=== PATIENT | male | born 1990 | race Caucasian/White ===

== ENCOUNTER 2017-06-05 21:59 | Emergency (ER) | payer SELFPAY ==
[2017-06-05 22:17] VITALS: BMI 26.4
[2017-06-05 22:39] LABS: BASOPHILS # (AUTO) 0.1 X10^3/uL (0.0-0.1); BASOPHILS % (AUTO) 1.1 % (0.2-1.0); EOSINOPHILS # (AUTO) 0.2 x10^3/uL (0.0-0.2); HEMATOCRIT 47.8 % (42.0-54.0); HEMOGLOBIN 16.6 g/dL (13.5-18.0); LYMPHOCYTES # (AUTO) 3.2 X10^3/uL (1.3-2.9); LYMPHOCYTES % (AUTO) 31.2 % (21.0-51.0); MEAN CORPUSCULAR HEMOGLOBIN 30.6 pg (27.0-34.0); MEAN CORPUSCULAR HGB CONC 34.7 g/dL (33.0-35.0); MEAN CORPUSCULAR VOLUME 88.3 fL (80.0-100.0); MEAN PLATELET VOLUME 7.6 fL (7.4-11.0); MONOCYTES # (AUTO) 0.9 x10^3/uL (0.3-0.8); MONOCYTES % (AUTO) 9.1 % (0.0-13.0); NEUTROPHILS # (AUTO) 5.8 x10^3/uL (2.2-4.8); NEUTROPHILS % (AUTO) 56.6 % (42.0-75.0); PLATELET COUNT 190 X10^3/uL (150.0-450.0); RED BLOOD COUNT 5.41 X10^6/uL (4.7-6.0); RED CELL DISTRIBUTION WIDTH 13.5 % (11.6-16.5); WHITE BLOOD COUNT 10.2 X10^3/uL (3.6-10.0)
--- NOTE | 2017-06-05 22:56 | RAD ---
HISTORY: Hypertension Study: Single view of the chest. Comparison: None. Findings: The cardiomediastinal silhouette is normal. No focal consolidations, pleural effusions or pneumothora x. Osseous structures demonstrate no acute abnormality. IMPRESSION: 1. No acute cardiopulmonary process. Reported By:
[2017-06-05 22:57] LABS: BLOOD UREA NITROGEN 9 mg/dL (7-18); CARBON DIOXIDE 26.8 mmol/L (21-32); CHLORIDE 104 mmol/L (98-107); CREATININE 0.98 mg/dL (0.70-1.30); SODIUM 141 mmol/L (136-145); TROPONIN I < 0.02 ng/mL (0-1.5); eGFR BLACK RACES > 60 (>60); eGFR NON BLACK RACES > 60 (>60)
[2017-06-05 23:00] LABS: ALANINE AMINOTRANSFERASE 36 Units/L (12-78); ALBUMIN 3.9 g/dL (3.4-5.0); ALKALINE PHOSPHATASE 89 Units/L (46-116); ASPARTATE AMINO TRANSFERASE 18 Units/L (15-37); CKMB % 1.7 % (<4); CREATINE KINASE 59 Units/L (39-308); CREATINE KINASE MB < 1.0 ng/mL (0-4.0); MAGNESIUM 1.9 mg/dL (1.7-2.9); TOTAL PROTEIN 7.3 g/dL (6.4-8.2)
--- NOTE | 2017-06-05 23:01 | DR.GENAD ---
HPI - PCP Primary Care Physician: NFD - Complaint/Symptoms Chief Complaint Doctors Comments: Patient is complaining of xiphoid chest pain for the past three days getting worst today with elevated blood pressure. States he does not usually have elevated blood pressure and he is not on any medicine for his blood pressure. He denies SOB,nausea, cold, cough, fever, or chills or any recent trauma. States the pain is 8 of 10 and is not affected by movement. He smokes one pack cigarettes daily and has a strong family history of heart disease. states ehevgeny does not have a local doctor. He is not having any problems with his food digesting. Chief Complaint:: HIGH BLOOD PRESSURE, HURTING IN LEFT ARM AND PRESSURE IN CHEST. Self Treatment fo Chief Complaint: CHECKED B/P FIRST TIME TODAY - Nurses notes reviewed Nurses Notes Review: Yes - Source History Provided: Patient - Mode of Arrival Mode of Arrival: Ambulatory - Timing Onset of Chief Complaint: 06/02/17 Came on: Gradually - Duration Duration: Constant How lon Duration: Days - Location Location: xiphoid chest pain - Severity Severity: Moderate - Modifying Factors Worsens:: nothing Improves:: nothing PMH - PMH Past Medical History: No Past Surgical History: No Surgical History: No History - Family History History of Family Medical Conditions: Yes Family Medical History: Diabetes Mellitus, Cancer, [place], Heart Failure, Sudden Cardiac , Hypertension - Social History Does patient currently use any type of tobacco product: Yes Have you used tobacco products in the last 12 months: Yes Type of Tobacco Use: Cigarettes How many years tobacco product used: 8 Does any household member use tobacco: No Alcohol Use: None Do you use any recreational Drugs:: No Lives With: Alone Lives Where: Home - infectious screening In the last 2 months have you had wt loss of >10#?: NO Have you had fever, night sweats or hemotysis?: No Have you traveled outside the country in the last 6 months?: No Isolation: Standard ROS - Review of Systems Constitutional: No Symptoms Reported. negative: See HPI, Chills, Diaphoresis, Fever, Malaise, Weakness, Irritable, Fatigue, Loss of Appetite, Other Eyes: No Symptoms Reported ENTM: No Symptoms Reported, Nose Congestion Respiratoy: No Symptoms Reported. negative: See HPI, Productive Cough, Non- Productive Cough, Moist Cough, Dry Cough, Hacking Cough, Barking Cough, Brassy Cough, Orthopnea, Short of Breath, Stridor, Wheezing, Hemoptysis, Other Cardiovascular: No Symptoms Reported, Chest Pain Gastrointestinal/Abdominal: No Symptoms Reported, Abdominal Pain. negative: See HPI, Constipation, Diarrhea, Nausea, Vomiting, Food Intolerance, Other Genitourinary: No Symptoms Reported. negative: See HPI, Discharge, Dysuria, Frequency, Hematuria, Pain, Bleeding, Other Neurological: No Symptoms Reported Musculoskeletal: No Symptoms Reported. negative: See HPI, Back Pain, Gout, Joint Pain, Joint Swelling, Muscle Pain, Muscle Stiffness, Neck Pain, Right, Left, Neck, Chest wall, Rib(s), Back, Shoulder, Arm, Elbow, Forearm, Wrist, Hand , Pelvis, Hip, Leg, Knee, Ankle, Foot, Other Integumentary: No Symptoms Reported Hematologic/Lymphatic: No Symptoms Reported. negative: See HPI, Anemia, Blood Clots, Easy Bleeding, Easy Bruising, Swollen Glands, Lymphadenopathy, Other Endocrine: No Symptoms Reported Psychiatric: No Symptoms Reported PE - Vital Signs Vitals: Temperature 98.0 F Pulse Rate [Left Brachial] 108 Pulse Rate 106 Respiratory Rate 23 Blood Pressure [Left Arm] 146/86 Blood Pressure 153/97 O2 Sat by Pulse Oximetry 97 - General Limitations: No Limitations General Appearance: Alert, In No Apparent Distress - Head Head Exam: Normal Inspection, Atraumatic, Normocephalic - Eyes Eye exam: Normal Appearance, PERRL, EOMI. negative: Scleral Icterus, Conjunctival Injection, Nystagmus, Miosis, Mydrasis, Periorbital Swelling, Periorbital Tenderness, Other - ENT ENT Exam: Normal Exam, Normal Oropharynx, Normal External Ear Exam, Mucous Membranes Moist, TM's Normal Bilaterally External Ear Exam: Normal External Inspection TM/Canal Exam: Bilateral Normal Nose Exam: Normal Nose Exam Mouth Exam: Normal Inspection. negative: Drooling, Trismus, Lip Swelling, Tongue Elevation, Tongue Swelling, Laceration, Other Throat Exam: Normal Inspection - Neck Neck Exam: Normal Inspection, Full ROM, Trachea Midline. negative: Tenderness, Meningismus, Lymphadenopathy, Thyromegaly, Other - Chest Chest Inspection: Normal Inspection, Symmetric Chest Wall Rise - Respiratory Respiratory Exam: Normal Lung Sounds Bilat Respiratory Exam: Bilateral Clear to Auscultation - Cardiovascular Cardiovascular Exam: Regular Rate, Normal Rhythm, Normal Heart Sounds - Abdominal Exam Abdominal Exam: Normal Inspection, Normal Bowel Sounds Abdominal Tenderness: negative: RUQ, RLQ, LUQ, LLQ, Epigastrium, Suprapubic, Diffuse, Mild, Moderate, Severe, Other - Extremities Extremities Exam: Normal Inspection, Full ROM, Normal Capillary Refill. negative: Tenderness, Edema, Joint Swelling, Calf Tenderness, Other - Back Back Exam: Normal Inspection, Full ROM. negative: Tenderness, (R) CVA Tenderness, (L) CVA Tenderness, Muscle Spasm, Paraspinal Tenderness, Vertebral Tenderness, Rashes, (R) Sciatic Notch Tenderness, (L) Sciatic Notch Tendern, (R ) Straight Leg Raise, (L) Straight Leg Raise, Other - Neurologic Neurological Exam: Alert, Oriented X3, CN II-XII Intact, Normal Gait, Reflexes Normal - Psychiatric Psychiatric Exam: Normal Affect, Normal Mood. negative: Depressed, Agitated, Anxious, Flat Affect, Manic, Homicidal Ideation, Suicidal Ideation, Other - Skin Skin Exam: Warm, Dry, Intact, Normal Color ROR - Labs Reviewed Laboratory Results Reviewed?: Yes (all labs and x-ray results reviewed and discussed with patient and parents) Result Diagrams: 06/05/17 22:25 06/05/17 22:25 Laboratory: WBC 10.2 X10^3/uL (3.6-10.0) H 06/05/17 22:25 RBC 5.41 X10^6/uL (4.7-6.0) 06/05/17 22:25 Hgb 16.6 g/dL (13.5-18.0) 06/05/17 22:25 Hct 47.8 % (42.0-54.0) 06/05/17 22:25 MCV 88.3 fL (80.0-100.0) 06/05/17 22:25 MCH 30.6 pg (27.0-34.0) 06/05/17 22:25 MCHC 34.7 g/dL (33.0-35.0) 06/05/17 22:25 RDW 13.5 % (11.6-16.5) 06/05/17 22:25 Plt Count 190 X10^3/uL (150.0-450.0) 06/05/17 22:25 MPV 7.6 fL (7.4-11.0) 06/05/17 22:25 Neut % 56.6 % (42.0-75.0) 06/05/17 22:25 Lymph % 31.2 % (21.0-51.0) 06/05/17 22:25 [place] % 9.1 % (0.0-13.0) 06/05/17 22:25 Eos % 2.0 % (0.9-2.9) 06/05/17 22:25 Baso % 1.1 % (0.2-1.0) H 06/05/17 22:25 Neut # 5.8 x10^3/uL (2.2-4.8) H 06/05/17 22:25 Lymph # 3.2 X10^3/uL (1.3-2.9) H 06/05/17 22:25 [place] # 0.9 x10^3/uL (0.3-0.8) H 06/05/17 22:25 Eos # 0.2 x10^3/uL (0.0-0.2) 06/05/17 22:25 Baso # 0.1 X10^3/uL (0.0-0.1) 06/05/17 22:25 Absolute Nucleated RBC 0.2 /100WBC 06/05/17 22:25 INR Target Range - 06/05/17 22:25 INR 0.95 (0.8-1.3) 06/05/17 22:25 PTT 31.9 SECONDS (22.9-36.5) 06/05/17 22:25 PTT Comment - 06/05/17 22:25 D-Dimer < 100 ng/mL (0-400) 06/05/17 22:25 Sodium 141 mmol/L (136-145) 06/05/17 22:25 Corrected Sodium TNP 06/05/17 22:25 Potassium 3.7 mmol/L (3.5-5.1) 06/05/17 22:25 Chloride 104 mmol/L (98-107) 06/05/17 22:25 Carbon Dioxide 26.8 mmol/L (21-32) 06/05/17 22:25 BUN 9 mg/dL (7-18) 06/05/17 22:25 Creatinine 0.98 mg/dL (0.70-1.30) 06/05/17 22:25 Est GFR (MDRD) Af Amer > 60 (>60) 06/05/17 22:25 Est GFR (MDRD) Non-Af > 60 (>60) 06/05/17 22:25 Glucose 102 mg/dL (65-99) H 06/05/17 22:25 Calcium 9.0 mg/dL (8.5-10.1) 06/05/17 22:25 Corrected Calcium TNP 06/05/17 22:25 Magnesium 1.9 mg/dL (1.7-2.9) 06/05/17 22:25 Total Bilirubin 0.20 mg/dL (0.2-1.0) 06/05/17 22:25 AST 18 Units/L (15-37) 06/05/17 22:25 ALT 36 Units/L (12-78) 06/05/17 22:25 Alkaline Phosphatase 89 Units/L (46-116) 06/05/17 22:25 Creatine Kinase 59 Units/L (39-308) 06/05/17 22:25 CK-MB (CK-2) < 1.0 ng/mL (0-4.0) 06/05/17 22:25 CK/CKMB % Calc 1.7 % (<4) 06/05/17 22:25 Troponin I < 0.02 ng/mL (0-1.5) 06/05/17 22:25 Total Protein 7.3 g/dL (6.4-8.2) 06/05/17 22:25 Albumin 3.9 g/dL (3.4-5.0) 06/05/17 22:25 Globulin 3.4 g/dL (2.5-4.5) 06/05/17 22:25 Albumin/Globulin Ratio 1.1 Ratio (1.1-2.1) 06/05/17 22:25 TSH 3rd Generation 1.859 uIU/mL (0.358-3.74) 06/05/17 22:25 Urine Opiates Screen Negative (NEG=<300) 06/05/17 22:47 Urine Methadone Screen Negative (NEG=<300) 06/05/17 22:47 Ur Barbiturates Screen Negative (NEG=<200) 06/05/17 22:47 Ur Phencyclidine Scrn Negative (NEG=<25) 06/05/17 22:47 Ur Amphetamines Screen Negative (NEG=<1000) 06/05/17 22:47 U Benzodiazepines Scrn Negative (NEG=<200) 06/05/17 22:47 Urine Cocaine Screen Negative (NEG=<300) 06/05/17 22:47 U Marijuana (THC) Screen Negative (NEG=<50) 06/05/17 22:47 H. pylori IgG Antibody Negative (NEGATIVE) 06/05/17 22:25 - XRAY XRAY Interpreted by: Radiologist (CXR: No acue cardiopulmonary process) - Diagnosis Discharge Problem: Chest pain, Chest wall pain, Sinus tachycardia, Hypertension - Discharge Plan Disposition: HOME, SELF-CARE Condition: Stable Prescriptions: Ibuprofen [MOTRIN TAB 800 MG *] 800 mg PO BID PRN #60 tab PRN Reason: Pain/Inflammation Ranitidine HCl [ZANTAC TAB 150 MG *] 150 mg PO BID #60 tab - Follow ups/Referrals Follow ups/Referrals: NFD,None [Primary Care Provider] - 3 days ALEXANDRA PIMENTEL [STAFF PHYSICIAN] - 3 days - Instructions Instructions: Sinus Tachycardia, Hypertension, [id number], DASH Eating Plan
[2017-06-05] MEDS ORDERED: MOTRIN TAB 800 MG PO STA (23:39)
[2017-06-05] MEDS ORDERED: ZANTAC PO STA (23:40)
[2017-06-05] MEDS ORDERED: ZANTAC PO ONE (23:54)
[2017-06-05] MEDS ORDERED: MOTRIN TAB 800 MG PO ONE (23:54)
[2017-06-06 00:04] VITALS: BP 144/87
== END 2017-06-06 | disposition home or self-care (01) ==
LOC: ER 21:59
DX: R07.89 Other chest pain (principal); R00.0 Tachycardia, unspecified; I10 Essential (primary) hypertension
CPT/HCPCS: 36415; 71010; 80053; 80307; 82550; 82553; 83735; 84443; 84484; 85025; 85378; 85610; 85730; 86677; 93005; 93010; 99283; A4222; G0434